=== PATIENT | male | born 1955 | race Caucasian/White ===

== ENCOUNTER → 2022-03-15 | Outpatient (CLI) | payer MEDICARE, OTHER ==
[~2022-03-15] MED LIST: ATEN25TA AD; LISI10TA22 PO; SIMV40TA20
== END ==
LOC: M LABSMTC 10:02
PROVIDERS: ATTEND Anesthesiology
DX: Z01.818 Encounter for other preprocedural examination (principal); Z11.52 Encounter for screening for COVID-19

== ENCOUNTER 2022-03-19 09:23 | Day surgery (SDC) | payer MEDICARE ==
[~2022-03-19] VITALS: Ht 182.9 cm; Wt 102.5 kg
[~2022-03-19 09:23] MED LIST changes: +NS 1,000 ML IV ONE
[2022-03-19] MEDS ORDERED: fentaNYL 100 MCG/2 ML INJECTION As Ordered ONE (11:03)
[2022-03-19] MEDS ORDERED: ePHEDrine SULFATE 25 MG/5 ML(5MG/ML) SYRINGE As Ordered ONE (11:21)
[2022-03-19] MEDS ORDERED: propofoL 200 MG/20 ML VIAL As Ordered ONE (11:21)
[2022-03-19] MEDS ORDERED: LIDOCAINE 2% 100MG/5ML SDV (FOR ANES.) As Ordered ONE (11:21)
[2022-03-19 11:55] VITALS: BP 141/64
== END 2022-03-19 12:05 | disposition home or self-care (01) ==
LOC: M OPP 09:23
PROVIDERS: ATTEND Internal Medicine Gastroenterology
DX: K59.00 Constipation, unspecified (principal); K64.0 First degree hemorrhoids; K31.89 Other diseases of stomach and duodenum; R12 Heartburn; R10.11 Right upper quadrant pain; Z79.899 Other long term (current) drug therapy; Z87.19 Personal history of other diseases of the digestive system
CPT/HCPCS: 43239; 45378; 88305; J3010

== ENCOUNTER 2025-07-17 11:55 | Emergency (ER) | payer MEDICARE ==
[~2025-07-17] VITALS: Ht 182.9 cm; Wt 101.0 kg
[~2025-07-17 11:55] MED LIST changes: -ATEN25TA AD; +ATEN25TA PO; -NS 1,000 ML IV ONE; -SIMV40TA20; +SIMV40TA20 PO
[2025-07-17 14:10] VITALS: TEMP 97.2
[2025-07-17 14:14] LABS: BASO # 0.0 10^3/uL (0.0-0.2); BASO % 0.5 % (0.0-1.0); EOS # 0.1 10^3/uL (0.0-0.5); EOS % 0.9 % (0.0-3.0); LYMPH # 1.6 10^3/uL (1.5-5.0); LYMPH % 19.0 % (24.0-44.0); MONO # 0.6 10^3/uL (0.0-0.8); MONO % 7.8 % (2.0-8.0); NEUTROPHILS # 5.9 10^3/uL (1.5-8.5); NEUTROPHILS % 71.4 % (36.0-66.0); PLATELET COUNT, AUTOMATED 176 10^3/uL (150-450)
[2025-07-17] MEDS ORDERED: HOME MED LIST COMPLETE! XX SCH (14:20)
[2025-07-17 14:41] LABS: CALCIUM LEVEL 9.6 MG/DL (8.3-10.6); CARBON DIOXIDE LEVEL 28.0 MMOL/L (20-31); CHLORIDE LEVEL 106.0 MMOL/L (98-107); CREATININE FOR GFR 1.14 MG/DL (0.70-1.30); GLOMERULAR FILTRATION RATE 69.2 (>42); POTASSIUM SERUM 4.9 MMOL/L (3.5-5.1); SODIUM LEVEL 143.0 MMOL/L (136-145)
[2025-07-17 15:15] VITALS: BP 152/77; O2SAT 98
== END 2025-07-17 15:29 | disposition home or self-care (01) ==
LOC: M ED 11:55
DX: I10 Essential (primary) hypertension (principal); N40.0 Benign prostatic hyperplasia without lower urinary tract symptoms; Z79.899 Other long term (current) drug therapy

== ENCOUNTER → 2025-10-07 | Outpatient (CLI) | payer MEDICARE | LOC: M PLARAD 14:42 | PROVIDERS: ATTEND Student in an Organized Health Care Education/Training Program | DX: C90.30 Solitary plasmacytoma not having achieved remission (principal); M89.9 Disorder of bone, unspecified; R22.32 Localized swelling, mass and lump, left upper limb | CPT/HCPCS: 78816; A9552 ==

== ENCOUNTER → 2025-11-08 | Outpatient (CLI) | payer MEDICARE ==
[~2025-11-08] MED LIST changes: +TAMS1CAP17
== END ==
LOC: M ONCR 13:25
PROVIDERS: ATTEND General Practice
DX: C90.30 Solitary plasmacytoma not having achieved remission (principal); Z80.51 Family history of malignant neoplasm of kidney; Z79.899 Other long term (current) drug therapy